=== PATIENT | female | born 1990 | race Two or more races ===

== ENCOUNTER → 2017-03-14 | Outpatient (CLI) | payer OTHER ==
[2017-03-14 17:45] LABS: CH 30.6; CHCM 34.5; HCT 34.9 % (34.0-46.0); HDW 2.76; HGB 12.2 gm/dL (11.4-16.0); MCH 31.3 pg (25.0-35.0); MCHC 35.1 g/dL (31.0-37.0); MCV 89.3 fL (80.0-100.0); Mean Platelet Volume 7.6; RDW 13.1 % (11.5-15.5); WBC 7.6 k/uL (3.8-10.6)
[2017-03-14 17:53] LABS: Glucose 62 mg/dL (74-99); Non-African American GFR(MDRD) >60 (>60 ml/min/1.73 sqM)
[2017-03-14 18:24] LABS: Hepatitis B Surface Ag Index 0.04
[2017-03-15 00:32] LABS: Treponemal Ab Non-Reactive (Non-Reactive)
[2017-03-15 05:31] LABS: Toxoplasma Antibody (IgG) <3.0 IU/mL (<7.2)
[2017-03-15 09:19] LABS: Alpha Fetoprotein 19.8 ng/mL; Alpha Fetoprotein (M.O.M) 0.63 (Negative); B-HCG (M.O.M.) 1.12; Gestational Age (days) 6; Human Chorionic Gonadotropin 41.9 IU/mL; Inhibin A (M.O.M.) 0.64; Interpretation SeeBelow; Maternal Age at EDD (Yrs) 24; Smoker No; Unconjugated Estriol (M.O.M.) 0.61
== END | disposition home or self-care (01) ==
LOC: LABWHC1 16:30
PROVIDERS: ATTEND Obstetrics & Gynecology
DX: O26.812 Pregnancy related exhaustion and fatigue, second trimester (principal); Z3A.00 Weeks of gestation of pregnancy not specified
CPT/HCPCS: 36415; 82105; 82565; 82677; 82947; 84702; 85027; 86336; 86762; 86777; 86778; 86780; 86850; 86900; 86901; 87340; 87390

== ENCOUNTER → 2017-05-28 | Outpatient (CLI) | payer OTHER ==
[2017-05-28 10:22] LABS: CH 32.1; CHCM 33.8; HCT 34.8 % (34.0-46.0); HGB 11.1 gm/dL (11.4-16.0); MCH 30.6 pg (25.0-35.0); MCHC 31.9 g/dL (31.0-37.0); MCV 95.8 fL (80.0-100.0); RBC 3.63 m/uL (3.80-5.40); RDW 14.1 % (11.5-15.5); WBC 8.9 k/uL (3.8-10.6)
== END | disposition home or self-care (01) ==
LOC: LABWHC1 09:04
PROVIDERS: ATTEND Obstetrics & Gynecology
DX: Z34.02 Encounter for supervision of normal first pregnancy, second trimester (principal); Z3A.00 Weeks of gestation of pregnancy not specified
CPT/HCPCS: 36415; 82950; 85027

== ENCOUNTER 2017-06-10 20:58 | Outpatient (CLI) | payer OTHER ==
[2017-06-10 22:12] LABS: Appearance,Urine Clear (Clear); Bilirubin,Urine Negative (Negative); Glucose,Urine (UA) Negative (Negative); Ketones,Urine Negative (Negative); Leukocyte Esterase,Urine Negative (Negative); Nitrite,Urine Negative (Negative); PH, Urine 6.5 (5.0-8.0); Protein,Urine Negative (Negative); Specific Gravity,Urine 1.008 (1.001-1.035); UA Billing (MACRO vs. MICRO) CHEM; Urobilinogen,Urine <2.0 mg/dL (<2.0)
[2017-06-10 22:26] VITALS: BP 137/82; PULSE 80; RESP 16; TEMP 99.3
[2017-06-10 23:03] LABS: Basophils % (A) 0 %; CH 30.8; CHCM 34.1; Eosinophils # (A) 0.1 k/uL (0-0.7); Eosinophils % (A) 1 %; HCT 34.4 % (34.0-46.0); HDW 2.98; HGB 11.4 gm/dL (11.4-16.0); Luc % (Auto) 2; Lymphocytes # (A) 1.9 k/uL (1.0-4.8); Lymphocytes % (A) 18 %; MCH 30.2 pg (25.0-35.0); MCHC 33.3 g/dL (31.0-37.0); MCV 90.9 fL (80.0-100.0); Mean Platelet Volume 8.5; Monocytes # (A) 0.7 k/uL (0-1.0); Monocytes % (A) 6 %; Neutrophils # (A) 7.6 k/uL (1.3-7.7); Neutrophils % (A) 73 %; RBC 3.78 m/uL (3.80-5.40); WBC 10.5 k/uL (3.8-10.6); WBC (Perox) 10.32
--- NOTE | 2017-06-10 23:09 | US ---
EXAMINATION TYPE: US OB >= 14 wk fetus DATE OF EXAM: 06/10/2017 COMPARISON: None CLINICAL HISTORY: decreased movmement TECHNIQUE: Transabdominal (TA) GESTATIONAL AGE / DATING Physician Established: (28 weeks/3 days) EDC: 08/30/2017 Dates by LMP: (28 weeks/3 days) EDC: 08/30/2017 Dates by First Scan: No previous this is first scan weeks/ Dates by Current Scan: (28 weeks/1 days) EDC: 09/01/2017 SURVEY IUP: Single PLACENTA: Posterior PREVIA: No Previa ORI: 20 cm Normal CERVICAL LENGTH (transabdominal: norm > 3.0cm): 3.45 cm BIOMETRY PRESENTATION: Vertex LIE: Transverse with head maternal Left BPD: 8.03 cm 32 weeks / 2 days HC: 26.51 cm 28 weeks / 6 days AC: 23.15 cm 27 weeks / 4 days FL: 5.1 cm 27 weeks / 1 days ESTIMATED WEIGHT IN GRAMS: 1126 grams ESTIMATED WEIGHT IN LBS/OZ: 2 lbs. 8 oz. WEIGHT PERCENTAGE BASED ON ESTABLISHED DATES: % HC/AC: 1.14 Normal FL/AC: 21.79 Normal HEART RATE: 159 bpm RHYTHM: Normal MATERNAL WALL MEASUREMENT: 2.1 cm from skin to anterior uterine wall (if exam limited due to body hab itus). Viable IUP 28w3d EDD09/01/2017 HR 159BPM IMPRESSION: The ultrasound gestational age is 28 weeks 1 days. I see no complicating process.
[2017-06-10 23:21] LABS: ALT 34 U/L (9-52); AST 18 U/L (14-36); Blood Urea Nitrogen 3 mg/dL (7-17); LDH 363 U/L (313-618); Non-African American GFR(MDRD) >60 (>60 ml/min/1.73 sqM); Uric Acid 3.4 mg/dL (3.7-7.4)
--- NOTE | 2017-06-12 08:38 | P.MSEPDOC ---
Presenting Problems - Arrival Data Date of Arrival on Unit: 06/10/17 Time of Arrival on Unit: 20:58 Mode of Transport: Portable - Complaint OB-Reason for Admission/Chief Complaint: Decreased Movement Comment: no fm x29 hrs per pt Medical History - Information : 1 Para: 0 Term: 0 : 0 Abortions: Spontaneous or Elective: 0 Number of Living Children: 0 - Gestational Age Gestational Age by NICOLE (wks/days): 28 Weeks and 3 Days Review of Systems - Review of Systems Constitutional: No problems Breast: No problems ENT: No problems Cardiovascular: No problems Respiratory: No problems Gastrointestinal: No problems Genitourinary: No problems Musculoskeletal: No problems Neurological: No problems Skin: No problems Vital Signs - Temperature Temperature: 99.3 F Temperature Source: Temporal Artery Scan - Pulse Right Pulse Rate: 80 Pulse Assessment Method: Pulse Oximetry - Respirations Respiratory Rate: 16 O2 Sat by Pulse Oximetry: 100 - Blood Pressure Right Arm Blood Pressure: 137/82 Blood Pressure Mean: 100 Blood Pressure Source: Automatic Cuff Medical Screen Scoring (Pre) - Cervical Exam Dilation: Exam Deferred Effacement: Exam Deferred - Uterine Contractions Frequency: > 5 minutes apart = 1 Duration: > 40 seconds = 2 Intensity: N/A - Maternal Vital Signs Maternal Temperature: N/A Signs of Preeclampsia: N/A Maternal Respirations: N/A - Pain Assessment Pain Scale Used: Numeric (1 - 10) Pain Intensity: 0 Pain Management Goal: 3 - Assessment Baseline FHR: 130 Heart Rate - NICHD Category: Category I (Normal) = 0 NST: Reactive Position: N/A - Total Score Total Score (Pre): 3 - Level of Risk Level of Risk: Low (0-5) Physician Notification (Pre) - Physician Notified Physician Notified Date: 06/10/17 Physician Notified Time: 21:25 Physician/Practitioner Notifed:: Dr Aiken - Notification Comment Comment: reported on c/o no fm, tones on admission and reactive NST, pt has pushed kick count monitor about 20 times since being on, feeling some movement but is stil very concerned and teary. reported on vitals. orders for PIH labs, UA, complete OB u/s Disposition - Disposition Discharge Date: 06/10/17 Discharge Time: 23:42 I agree with the RN Medical Screening Exam: Yes Risk & Benefit of care provided described in d/c instruction: Yes Diagnosis: DECREASED MOVEMENTS, THIRD TRIMESTER, FETUS 1
== END 2017-06-10 23:43 | disposition home or self-care (01) ==
LOC: FBPOP 20:58
PROVIDERS: ATTEND Obstetrics & Gynecology
DX: O36.8130 Decreased fetal movements, third trimester, not applicable or unspecified (principal); Z3A.28 28 weeks gestation of pregnancy
CPT/HCPCS: 59025; 82565; 83615; 84450; 84460; 84520; 84550; 85025; 81003; 76805; G0463; 99213

== ENCOUNTER → 2017-07-23 | Outpatient (CLI) | payer OTHER ==
[2017-07-23 17:30] LABS: Bilirubin, Delta 0.1 mg/dL (0.0-0.2); Total Bilirubin 0.6 mg/dL (0.2-1.3)
== END | disposition home or self-care (01) ==
LOC: LABWHC1 16:56
PROVIDERS: ATTEND Obstetrics & Gynecology
DX: O26.619 Liver and biliary tract disorders in pregnancy, unspecified trimester (principal); Z3A.00 Weeks of gestation of pregnancy not specified
CPT/HCPCS: 36415; 82248; 83789; 84450; 84460

== ENCOUNTER 2017-08-16 11:35 | Inpatient (IN) | payer OTHER ==
[2017-08-16] MEDS ORDERED: OXYTOCIN 10 UNIT/ML 1 ML VIAL IM PRN (12:05)
[2017-08-16] MEDS ORDERED: TERBUTALINE 1 MG/ML VIAL SQ PRN (12:05)
[2017-08-16] MEDS ORDERED: METHYLERGONOVINE 0.2 MG/ML 1 ML AMP IM PRN (12:05)
[2017-08-16] MEDS ORDERED: LIDOCAINE 1% (PF) 10 MG/ML (30 ML SDV) SQ PRN (12:05)
[2017-08-16] MEDS ORDERED: CARBOPROST TROMETHAMINE 250 MCG/ML 1 ML AMP IM PRN (12:05)
[2017-08-16 12:30] VITALS: BMI 32.5
[2017-08-16] MEDS: LACTATED RINGERS 1,000 ML IV SCH ×3 (12:30→21:21)
[2017-08-16 12:44] LABS: Basophils % (A) 0 %; Eosinophils # (A) 0.1 k/uL (0-0.7); Eosinophils % (A) 1 %; HCT 36.3 % (34.0-46.0); HGB 11.7 gm/dL (11.4-16.0); Lymphocytes # (A) 1.4 k/uL (1.0-4.8); Lymphocytes % (A) 14 %; MCH 28.7 pg (25.0-35.0); MCHC 32.2 g/dL (31.0-37.0); MCV 89.3 fL (80.0-100.0); Mean Platelet Volume 9.5; Monocytes # (A) 0.4 k/uL (0-1.0); Monocytes % (A) 4 %; Neutrophils % (A) 79 %; Platelet Count 207 k/uL (150-450); RBC 4.07 m/uL (3.80-5.40); RDW 14.9 % (11.5-15.5); WBC 10.2 k/uL (3.8-10.6)
[2017-08-16 12:53] LABS: Glucose,Urine (UA) Negative (Negative); Ketones,Urine Negative (Negative); Partial Thromboplastin Time 27.2 sec (22.0-30.0); Protein,Urine Negative (Negative); Prothrombin Time 9.8 sec (9.0-12.0)
[2017-08-16 12:54] LABS: ALT 37 U/L (9-52); AST 53 U/L (14-36); Blood Urea Nitrogen 6 mg/dL (7-17); Uric Acid 5.1 mg/dL (3.7-7.4)
[2017-08-16] MEDS: OXYTOCIN 20 UNITS/1000 ML NS 1,000 ML IV SCH (12:55)
[2017-08-16] MEDS: BUTORPHANOL 1 MG/ML 1 ML VIAL IV PRN (18:21)
[2017-08-16] MEDS ORDERED: BUPIVACAINE (PF) 0.25% 30 ML VIAL ONE (21:11)
[2017-08-16] MEDS ORDERED: fentaNYL (PF) 50 MCG/ML 5 ML AMP ONE (21:11)
[2017-08-16] MEDS ORDERED: SODIUM CHLORIDE 0.9% 100 ML BAG ONE (21:11)
[2017-08-16] MEDS ORDERED: BUPIVACAINE (PF) 0.25% 25 ML, fentaNYL (PF) 200 MCG in SODIUM CHLORIDE 0.9% 71 ML EPIDURAL ONE (21:23)
[2017-08-17] MEDS: BUTORPHANOL 1 MG/ML 1 ML VIAL IV PRN (02:01)
--- NOTE | 2017-08-17 03:03 | P.HPOB ---
History of Present Illness H&P Date: 08/17/17 Chief Complaint: IUP term: gestational HTN Merlene is a 26 year-old at 38 weeks gestation who presented to the office today for her normal scheduled visit. It was at that time noted she had an elevated BP 150/90. repeat bp remained elevated and she was sent to L&D for induction of labor. Risks discussed with her including the potential for lungs to not be mature as baby was not 39 weeks. However due to gestational hypertension there is a need to get her delivered since she is past 37 weeks gestation. Her course generally speaking has been unremarkable. She is feeling well at this time. Her pertinent labs did include A+ blood type with an Rh antibody was negative, rubella nonimmune, hepatitis B surface antigen RPR and HIV were all negative. Group B strep was negative. On physical exam vital signs are stable and afebrile. Heart regular, lungs clear, extremities without pain. Osteopathic exam is unremarkable. Abdomen is soft gravid uterus is noted. heart tones in the 120s and reactive. Assessment intrauterine at term. Gestational hypertension. Plan toast augmentation of labor with expectation for spontaneous vaginal delivery. She plans to use epidural for analgesia. At the time of presentation she was dilated to 1 cm 50% effaced and -3 station. Artificial rupture membranes was performed and clear fluid is noted. Past Medical History Past Medical History: No Reported History History of Any Multi-Drug Resistant Organisms: MRSA Date of last positivie culture/infection: 2014 MDRO Source:: left arm and lower abdomen Past Surgical History: No Surgical Hx Reported Past Anesthesia/Blood Transfusion Reactions: No Reported Reaction Past Psychological History: No Psychological Hx Reported Smoking Status: Never smoker Past Alcohol Use History: None Reported Past Drug Use History: None Reported - Past Family History Mother Family Medical History: Cancer, Hypertension Medications and Allergies Home Medications Medication Instructions Recorded Confirmed Type Pnv 11/Iron Fum/Folic Acid/Om3 1 each PO DAILY 06/10/17 08/16/17 History [Virt-Jarret Dha Softgel] Allergies Allergy/AdvReac Type Severity Reaction Status Date / Time cephalexin [From Keflex] Allergy Rash/Hives Verified 08/16/17 12:03 Opioids - Morphine Analogues Allergy Rash/Hives Verified 08/16/17 12:03 Exam Osteopathic Statement: *. No significant issues noted on an osteopathic structural exam other than those noted in the History and Physical/Consult. - Vital Signs Vital signs: Vital Signs Temp Pulse Resp BP Pulse Ox 08/16/17 11:39 98.6 F 86 16 141/95 98 Intake and Output 08/16/17 08/16/17 08/17/17 14:59 22:59 06:59 Other: # Voids 1 1 Weight 91.626 kg Patient Weight 08/17/17 06:59 Weight 91.626 kg Results Result Diagrams: 08/16/17 12:00 08/16/17 12:00 Abnormal Lab Results - Last 24 Hours (Table) 08/16/17 08/16/17 Range/Units 12:00 12:00 Neutrophils # 8.0 H (1.3-7.7) k/uL BUN 6 L (7-17) mg/dL Creatinine 0.50 L (0.52-1.04) mg/dL AST 53 H (14-36) U/L
--- NOTE | 2017-08-17 03:04 | P.PROBDLV ---
Vaginal Delivery Note - . Vaginal Delivery Note: status to complete and pushing with spontaneous vaginal delivery of a viable male over a second-degree midline laceration. Following delivery of the head anterior posterior shoulders were delivered with gentle downward and upward traction followed by the remainder the baby. Mouth nares were then bulb suctioned and baby was placed on mother's abdomen where the umbilical cord was allowed to pulsate for 30 seconds prior to clamping and cutting. Once this was accomplished nursery personnel was present to assume care. Placenta was then delivered intact and Pitocin was added to the IV. scores and weight are both pending at this time but both mother and baby appear stable. Second- degree midline laceration was repaired with 3-0 Vicryl following 1% Xylocaine for analgesia. It is noted that she has a small avulsion along the right upper vagina. However, this is not bleeding and was therefore left alone. She'll plan to use dermaplast spray as needed
[2017-08-17] MEDS: OXYTOCIN 20 UNITS/1000 ML NS 1,000 ML IV SCH (03:31)
[2017-08-17] MEDS ORDERED: ZOLPIDEM 5 MG TAB PO PRN (04:50)
[2017-08-17] MEDS ORDERED: SIMETHICONE 80 MG CHEWABLE PO PRN (04:50)
[2017-08-17] MEDS ORDERED: LANOLIN CREAM 5 GM TUBE TOPICAL PRN (04:50)
[2017-08-17] MEDS ORDERED: diphenhydrAMINE 25 MG CAP PO PRN (04:50)
[2017-08-17] MEDS ORDERED: diphenhydrAMINE 50 MG/ML 1 ML VIAL IVP PRN ×2 (04:50)
[2017-08-17] MEDS ORDERED: BENZOCAINE/MENTHOL SPRAY 1 GM/SPRAY AEROSOL TOPICAL PRN (04:50)
[2017-08-17] MEDS ORDERED: ACETAMINOPHEN TAB 325 MG TAB PO PRN (04:50)
[2017-08-17] MEDS ORDERED: diphenhydrAMINE 50 MG CAP PO PRN (04:50)
[2017-08-17] MEDS ORDERED: WITCH HAZEL 1 EACH MED..PAD TOPICAL PRN (04:50)
[2017-08-17] MEDS ORDERED: HYDROCORTISONE 2.5% RECTAL CREAM 30 GM TUBE RECTAL PRN (04:50)
[2017-08-17] MEDS: IBUPROFEN 600 MG TAB PO PRN ×2 (05:18→20:02)
[2017-08-17] MEDS: SENNOSIDES-DOCUSATE SODIUM 1 EACH TAB PO SCH ×2 (07:40→20:23)
[2017-08-17] MEDS: LACTATED RINGERS 1,000 ML IV SCH ×2 (14:41→20:23)
[2017-08-18] MEDS: IBUPROFEN 600 MG TAB PO PRN ×3 (04:40→23:53)
[2017-08-18] MEDS: SENNOSIDES-DOCUSATE SODIUM 1 EACH TAB PO SCH ×2 (09:13→21:47)
--- NOTE | 2017-08-18 10:42 | P.DS ---
Providers Date of admission: 08/16/17 11:35 Expected date of discharge: 08/18/17 Attending physician: Patrick Aiken Primary care physician: Stated None Hospital Course: Patient is seen and evaluated, overall she is doing very well she is ambulating , voiding, tolerating her diet. She voices no complaints. Vital signs stable and afebrile. Heart regular, lungs clear, extremities without pain. Abdomen is soft uterus is firm lochia is reported to be light. She plans to go home today. She requests nothing for pain. Prescription for breast pump has been provided. Assessment post day 1. Plan discharged home follow up with me in 6 weeks. Patient Condition at Discharge: Good Plan - Discharge Summary Discharge Rx Participant: No New Discharge Prescriptions: No Action Pnv 11/Iron Fum/Folic Acid/Om3 [Virt-Jarret Dha Softgel] 1 each PO DAILY Discharge Medication List Pnv 11/Iron Fum/Folic Acid/Om3 [Virt-Jarret Dha Softgel] 1 each PO DAILY 06/10/17 [History] Follow up Appointment(s)/Referral(s): Patrick Aiken DO [Doctor of Osteopathic Medicine] - 6 Weeks Activity/Diet/Wound Care/Special Instructions: No heavy lifting, limit stairs and driving and pelvic rest. If any high temperatures, heavy bleeding, or severe pain call my office Discharge Disposition: HOME SELF-CARE
[2017-08-19] MEDS: SENNOSIDES-DOCUSATE SODIUM 1 EACH TAB PO SCH (08:00)
[2017-08-19 09:51] VITALS: RESP 18
[2017-08-19 14:58] VITALS: BP 145/92; PULSE 83; TEMP 98.3
[2017-08-19] MEDS: IBUPROFEN 600 MG TAB PO PRN (16:01)
== END 2017-08-19 18:15 | disposition home or self-care (01) | DRG 775 ==
LOC: 4FBP 11:35
PROVIDERS: ADMIT Obstetrics & Gynecology; ATTEND Obstetrics & Gynecology
PROC: 10907ZC Drainage of Amniotic Fluid, Therapeutic from Products of Conception, Via Natural or Artificial Opening (ICD-10-PCS; principal; 2017-08-16)
PROC: 3E0R3BZ Introduction of Anesthetic Agent into Spinal Canal, Percutaneous Approach (ICD-10-PCS; principal; 2017-08-16)
PROC: 0KQM0ZZ Repair Perineum Muscle, Open Approach (ICD-10-PCS; principal; 2017-08-16)
PROC: 10E0XZZ Delivery of Products of Conception, External Approach (ICD-10-PCS; principal; 2017-08-16)
PROC: 3E033VJ Introduction of Other Hormone into Peripheral Vein, Percutaneous Approach (ICD-10-PCS; principal; 2017-08-16)
PROC: 00HU33Z Insertion of Infusion Device into Spinal Canal, Percutaneous Approach (ICD-10-PCS; principal; 2017-08-16)
DX: O13.4 Gestational [pregnancy-induced] hypertension without significant proteinuria, complicating childbirth (principal); O70.1 Second degree perineal laceration during delivery; Z37.0 Single live birth; Z3A.38 38 weeks gestation of pregnancy; Z88.1 Allergy status to other antibiotic agents; Z88.5 Allergy status to narcotic agent
CPT/HCPCS: 81003; 82565; 84450; 84460; 84520; 84550; 85025; 85610; 85730; 88307